=== PATIENT | female | born 1960 | race African-American/Black ===

== ENCOUNTER 2020-04-08 11:38 | Emergency (ER) | payer OTHER ==
[~2020-04-08] VITALS: Ht 162.6 cm; Wt 114.0 kg
[2020-04-08] MEDS ORDERED: ONDANSETRON HCL 4MG/2ML INJ IV STA (12:16)
[2020-04-08] MEDS ORDERED: KETOROLAC 30MG/ML VIAL IV ONE (12:30)
[2020-04-08] MEDS ORDERED: SODIUM CHLORIDE 0.9% 1,000 ML IV ONE (12:30)
[2020-04-08] MEDS ORDERED: FENTANYL CITRATE/PF 50MCG/ML 2ML VIAL IV ONE ×2 (14:15→18:45)
[2020-04-08] MEDS ORDERED: ETOMIDATE 2MG/ML 10ML VIAL IV ONE (14:15)
[2020-04-08 15:45] LABS: BASOPHILS % 0.8 % (0.0-2.0); EOSINOPHILS % 0.7 % (0.0-5.0); HEMATOCRIT. 33.4 % (36.0-48.0); HEMOGLOBIN. 10.4 g/dL (12.0-16.0); LYMPHOCYTES % 20.5 % (20.0-50.0); MEAN CORPUSCULAR HEMOGLOBIN 26.3 pg (28.0-32.0); MEAN CORPUSCULAR VOLUME 84.3 fL (81.0-99.0); MEAN PLATELET VOLUME 10.1 fl (7.4-10.4); PLATELET 96 x1000/uL (130-400); RED BLOOD CELL COUNT 3.96 mill/uL (4.2-5.4)
[2020-04-08 15:54] LABS: CHLORIDE 109 mEq/L (98-107)
[2020-04-08 15:57] LABS: PARTIAL THROMBOPLASTIN TIME 25.2 sec (23.4-31.0); PROTHROMBIN TIME 10.6 sec (9.6-11.0)
[2020-04-08] MEDS ORDERED: DEXTROSE 50% WATER 50ML SYRINGE IV ONE (17:00)
[2020-04-08 20:00] VITALS: BP 137/80
== END 2020-04-08 21:45 | disposition short-term general hospital (02) ==
LOC: ER 11:47
DX: T84.021A Dislocation of internal left hip prosthesis, initial encounter (principal); M06.9 Rheumatoid arthritis, unspecified; E11.9 Type 2 diabetes mellitus without complications; I10 Essential (primary) hypertension; Z98.890 Other specified postprocedural states; Z88.1 Allergy status to other antibiotic agents; Z88.6 Allergy status to analgesic agent; M25.452 Effusion, left hip; W18.39XA Other fall on same level, initial encounter; Y93.89 Activity, other specified; Y92.89 Other specified places as the place of occurrence of the external cause; Y99.8 Other external cause status
CPT/HCPCS: 27265; 36415; 71045; 72170; 73502; 73552; 80053; 82962; 85025; 85610; 85730; 86850; 86900; 86901; 93005; 96361; 96374; 96375; 99152; 99285; J1885; J2405; J3010; J3490; J7030

== ENCOUNTER 2023-03-25 11:42 | Emergency (ER) | payer OTHER ==
[~2023-03-25] VITALS: Ht 167.6 cm; Wt 101.0 kg
[2023-03-25 11:52] VITALS: TEMP 98.1; O2SAT 97
[2023-03-25] MEDS ORDERED: MORPHINE SULFATE 10 MG/ML CPJ IM ONE (13:00)
[2023-03-25 14:00] VITALS: BP 148/83; PULSE 95; RESP 18
[2023-03-25] MEDS ORDERED: KETOROLAC 30MG/ML VIAL IM ONE (14:00)
[2023-03-25] MEDS ORDERED: METHYLPREDNISOLONE SOD SUCC 40MG VIAL IV ONE (14:15)
[2023-03-25] MEDS ORDERED: DIPHENHYDRAMINE 50MG/ML VIAL IV ONE (14:15)
[2023-03-25] MEDS ORDERED: HYDR-4350 MT (16:02)
== END 2023-03-25 16:34 | disposition home or self-care (01) ==
LOC: ER 11:42
DX: M25.551 Pain in right hip (principal); I10 Essential (primary) hypertension; E11.9 Type 2 diabetes mellitus without complications; Z88.0 Allergy status to penicillin; Z88.5 Allergy status to narcotic agent; Z98.890 Other specified postprocedural states; Z86.59 Personal history of other mental and behavioral disorders
CPT/HCPCS: 73502; 73700; 96372; 96374; 96375; 99285; J1200; J1885; J2920; Z7610; C1893

== ENCOUNTER 2024-01-27 00:13 | Inpatient (IN) | payer MEDICARE, MEDICAID ==
[~2024-01-27] VITALS: Ht 162.6 cm; Wt 104.3 kg
[~2024-01-27 00:13] MED LIST: APIX5TAB MT; DULO30CA52 MT; FERR325T6 MT; GABA-532 MT; HYDR-4350 MT; IMIP10TA MT; LEVO-65 MT; METO-385 PO; MONT5TAB25 PO; PRED5TAB48 PO; TOPI100T37 PO
[2024-01-27 00:19] VITALS: O2SAT 98
[2024-01-27 01:08] LABS: BG CARBOXYHEMOGLOBIN 0.1 % (0.5-1.5); BG DEOXYHEMOGLOBIN 6.3 % (0.0-5.0); BG FRACTION INSPIRED OXYGEN 21; BG HCO3 ACT 23.1 mmol/L (21.0-28.0); BG METHEMOGLOBIN 0.1 % (0.5-1.5); BG OXYGEN SATURATION 93.7 % (94.0-98.0); BG OXYHEMOGLOBIN 93.5 % (94.0-98.0); BG PCO2 40.6 mmHg (32.0-45.0); BG PH 7.373 (7.350-7.450); BG PO2 79.6 mmHg (83.0-108.0); BG SAMPLE SITE RIGHT RADIAL; BG TOTAL HEMOGLOBIN 11.3 g/dL (12.0-16.0); BG VENT MODE ROOM AIR
[2024-01-27 01:42] LABS: BASOPHILS % 1.3 % (0.0-2.0); EOSINOPHILS % 1.4 % (0.0-5.0); HEMATOCRIT. 33.2 % (36.0-48.0); HEMOGLOBIN. 10.4 g/dL (12.0-16.0); LYMPHOCYTES % 27.3 % (20.0-50.0); MEAN CORPUSCULAR HEMOGLOBIN 26.7 pg (28.0-32.0); MEAN CORPUSCULAR HGB CONC 31.4 g/dL (31.0-37.0); MEAN PLATELET VOLUME 9.8 fl (7.4-10.4); MONOCYTES % 11.7 % (2.0-8.0); NEUTROPHILS % 58.3 % (40.0-76.0); PLATELET 106 x1000/uL (130-400); RED CELL DISTRIBUTION WIDTH 16.2 % (11.6-14.6); WHITE BLOOD COUNT 7.6 x1000/uL (4.5-11.0)
[2024-01-27 01:47] LABS: CHLORIDE 108 mEq/L (98-107); POTASSIUM 3.5 mEq/L (3.5-5.1); SODIUM 143 mEq/L (136-145)
[2024-01-27 01:48] LABS: CALCIUM 9.2 mg/dL (8.7-10.4); CARBON DIOXIDE 27 mEq/L (21-32)
[2024-01-27 01:51] LABS: PROTHROMBIN TIME 11.5 sec (9.6-11.0)
[2024-01-27 01:53] LABS: GLUCOSE 104 mg/dL (70-105)
[2024-01-27 01:54] LABS: TROPONIN I HIGH SENSITIVITY 7 ng/L (3.0-34); UREA NITROGEN BLOOD 26 mg/dL (9-23)
[2024-01-27 01:55] LABS: ALANINE AMINOTRANSFERASE 24 IU/L (10-49); ALBUMIN 3.9 g/dL (3.2-4.8); ASPARTATE AMINOTRANSFERASE 42 IU/L (<34); BILIRUBIN DIRECT 0.2 mg/dL (<=3.0); CREATINE KINASE 284 IU/L (34-145)
[2024-01-27 01:56] LABS: BILIRUBIN TOTAL 0.6 mg/dL (0.1-1.0); PROTEIN TOTAL 6.4 g/dL (6.0-8.3)
[2024-01-27 02:05] LABS: CREATININE 2.1 mg/dL (0.6-1.0); ETHANOL BLOOD < 10 mg/dL (<10)
[2024-01-27] MEDS: CEFTRIAXONE 1GM/50ML 50 ML IV ONE (02:37)
[2024-01-27 04:28] LABS: TROPONIN I HIGH SENSITIVITY 7 ng/L (3.0-34)
[2024-01-27 06:21] LABS: CLARITY URINE CLOUDY (CLEAR); COLOR URINE DARK YELLOW (YELLOW); GLUCOSE URINE NEGATIVE (NEGATIVE); KETONES URINE TRACE (NEGATIVE); LEUKOCYTE ESTERASE URINE 1+ (NEGATIVE); NITRITE URINE NEGATIVE (NEGATIVE); OCCULT BLOOD URINE NEGATIVE (NEGATIVE); PH URINE 5.5 (4.5-8.0); PROTEIN URINE 1+ (NEGATIVE); SPECIFIC GRAVITY URINE 1.024 (1.005-1.030)
[2024-01-27 06:32] LABS: *AMPHETAMINES SCREEN URINE NEGATIVE (NEGATIVE); *BARBITURATES SCREEN URINE NEGATIVE (NEGATIVE); *BENZODIAZEPINES SCREEN URINE NEGATIVE (NEGATIVE); *COCAINE SCREEN URINE NEGATIVE (NEGATIVE)
[2024-01-27 06:33] LABS: CANNABINOID URINE SCREEN NEGATIVE (NEGATIVE); ECSTASY MDMA SCREEN URINE NEGATIVE (NEGATIVE); METHADONE URINE SCREEN NEGATIVE (NEGATIVE); OPIATES URINE SCREEN PRESUMPTIVE POSITIVE (NEGATIVE); PHENCYCLIDINE URINE SCREEN NEGATIVE (NEGATIVE)
[2024-01-27 07:17] LABS: SQUAMOUS EPITHELIAL CELL URINE FEW /lpf (RARE/1+)
[2024-01-27 07:18] LABS: BACTERIA URINE NONE SEEN
[2024-01-27] MEDS: SODIUM CHLORIDE 0.9% 1,000 ML IV ONE (07:39)
[2024-01-27] MEDS ORDERED: MAGNESIUM/ALUMINUM HYDROXIDE/SIMETHICONE 30ML UDC PO PRN (09:30)
[2024-01-27] MEDS ORDERED: IPRATROPIUM/ALBUTEROL 0.5-3(2.5)MG/3ML NEB NEB PRN (09:30)
[2024-01-27] MEDS ORDERED: ACETAMINOPHEN 325MG TABLET PO PRN (09:30)
[2024-01-27] MEDS ORDERED: NITROGLYCERIN 0.4MG TABLET SL SL PRN (09:30)
[2024-01-27] MEDS ORDERED: DEXTROSE 50% WATER 50ML SYRINGE IV PRN (09:30)
[2024-01-27] MEDS ORDERED: DOCUSATE SODIUM 100MG CAPSULE PO PRN (09:30)
[2024-01-27] MEDS: AMLODIPINE 10MG TABLET PO SCH (09:30)
[2024-01-27] MEDS ORDERED: GUAIFENESIN 200MG/10ML SUGAR FREE UDC PO PRN (09:30)
[2024-01-27] MEDS: LACTATED RINGERS 1,000 ML IV SCH (11:00)
[2024-01-27 12:00] VITALS: BP 106/60; PULSE 67; RESP 19; TEMP 36.50292; O2SAT 100
[2024-01-27 12:21] VITALS: BP 106/60; PULSE 67; RESP 18; TEMP 36.696
[2024-01-27] MEDS: BLOOD SUGAR DIAGNOSTIC STRIP TEST SCH (12:32)
[2024-01-27] MEDS: INSULIN LISPRO 100 UNITS/ML SUBCUT SCH (12:50)
[2024-01-27 16:00] VITALS: BP 116/66; PULSE 75; RESP 18; TEMP 37.05852; O2SAT 97
[2024-01-27] MEDS: APIXABAN 2.5 MG TABLET PO SCH (18:31)
[2024-01-27 20:00] VITALS: BP 132/76; PULSE 90; RESP 18; TEMP 37.11408; O2SAT 98
[2024-01-27] MEDS: FAMOTIDINE 20MG TABLET PO SCH (21:00)
[2024-01-27] MEDS: ASCORBIC ACID 500 MG TABLET PO SCH (21:00)
[2024-01-27 22:50] LABS: IRON 75 ug/dL (50-170)
[2024-01-27 22:51] LABS: CREATINE KINASE MB FRACTION 11.5 ng/mL (0.5-3.6); LDL CHOLESTEROL 65 mg/dL (5-100); TRIGLYCERIDE 133 mg/dL (0-150)
[2024-01-27 22:52] LABS: CHOLESTEROL 126 mg/dL (<200); CORTISOL 2.6 ucg/dL; HDL CHOLESTEROL 34 mg/dL (>65)
[2024-01-27 22:53] LABS: THYROID STIMULATING HORMONE 0.46 uIU/mL (0.55-4.78); TOTAL IRON BINDING CAPACITY 93 ug/dl (250-425)
[2024-01-27 22:55] LABS: T4 FREE 0.99 ng/dL (0.89-1.76)
[2024-01-27 22:58] LABS: FOLIC ACID (FOLATE) SERUM 15.94 ng/mL (>5.38)
[2024-01-27 23:04] LABS: VITAMIN B12 SERUM > 2000 pg/mL (211-911)
[2024-01-28] VITALS: BP 113/63; PULSE 93; RESP 18; TEMP 36.72516; O2SAT 99
[2024-01-28 02:09] LABS: CREATINE KINASE MB FRACTION 11.8 ng/mL (0.5-3.6)
[2024-01-28 08:00] VITALS: BP 121/64; PULSE 99; RESP 18; TEMP 36.3918; O2SAT 96
[2024-01-28 08:33] LABS: BASOPHILS % 0.3 % (0.0-2.0); EOSINOPHILS % 2.3 % (0.0-5.0); HEMATOCRIT. 32.8 % (36.0-48.0); LYMPHOCYTES % 33.4 % (20.0-50.0); MEAN CORPUSCULAR HEMOGLOBIN 26.2 pg (28.0-32.0); MEAN CORPUSCULAR HGB CONC 30.6 g/dL (31.0-37.0); MEAN CORPUSCULAR VOLUME 85.8 fL (81.0-99.0); MEAN PLATELET VOLUME 11.2 fl (7.4-10.4); MONOCYTES % 12.8 % (2.0-8.0); NEUTROPHILS % 51.2 % (40.0-76.0); PLATELET 104 x1000/uL (130-400); RED BLOOD CELL COUNT 3.82 mill/uL (4.2-5.4); RED CELL DISTRIBUTION WIDTH 16.2 % (11.6-14.6); WHITE BLOOD COUNT 6.1 x1000/uL (4.5-11.0)
[2024-01-28 08:43] LABS: CARBON DIOXIDE 27 mEq/L (21-32); CHLORIDE 108 mEq/L (98-107); POTASSIUM 4.1 mEq/L (3.5-5.1); SODIUM 144 mEq/L (136-145)
[2024-01-28 08:44] LABS: CALCIUM 8.7 mg/dL (8.7-10.4)
[2024-01-28 08:48] LABS: CREATININE 1.1 mg/dL (0.6-1.0)
[2024-01-28 08:49] LABS: GLUCOSE 103 mg/dL (70-105); UREA NITROGEN BLOOD 17 mg/dL (9-23)
[2024-01-28 08:50] LABS: ALBUMIN 3.4 g/dL (3.2-4.8)
[2024-01-28 08:51] LABS: ALANINE AMINOTRANSFERASE 21 IU/L (10-49); ASPARTATE AMINOTRANSFERASE 32 IU/L (<34); BILIRUBIN TOTAL 0.5 mg/dL (0.1-1.0); PHOSPHORUS 3.7 mg/dL (2.5-4.9); PROTEIN TOTAL 5.7 g/dL (6.0-8.3)
[2024-01-28] MEDS: ASPIRIN 81MG EC TABLET PO SCH (09:26)
[2024-01-28] MEDS: ZINC SULFATE 220 MG ( 50 ) CAPSULE PO SCH (09:26)
[2024-01-28] MEDS: PREDNISONE 5MG TABLET PO SCH (09:26)
[2024-01-28 10:11] LABS: ERYTHROCYTE SEDIMENTATION RATE 18 mm/hr (0-30)
[2024-01-28] MEDS ORDERED: NALOXONE HCL 0.4MG/ML VIAL IV PRN (10:45)
[2024-01-28] MEDS: HYDROCODONE/ACETAMINOPHEN 5/325MG TABLET PO PRN (13:28)
[2024-01-28 20:00] VITALS: BP 144/77; PULSE 101; RESP 19; TEMP 37.503; O2SAT 90
[2024-01-28] MEDS: MEROPENEM 1G/100ML 100 ML IV SCH (22:00)
[2024-01-29] VITALS: BP 128/54; PULSE 109; RESP 19; TEMP 37.16964; O2SAT 98
[2024-01-29 04:00] VITALS: BP 138/62; PULSE 98; RESP 19; TEMP 37.11408; O2SAT 96
[2024-01-29 08:00] VITALS: BP 154/83; PULSE 112; RESP 20; TEMP 36.50292; O2SAT 100
[2024-01-29 12:00] VITALS: BP 137/73; PULSE 105; RESP 19; TEMP 36.3918; O2SAT 100
[2024-01-29 16:00] VITALS: BP 142/77; PULSE 114; RESP 18; TEMP 36.61404; O2SAT 100
[2024-01-29 20:00] VITALS: BP 97/55; PULSE 116; RESP 18; TEMP 37.11408; O2SAT 100
[2024-01-30] VITALS: BP 131/76; PULSE 121; RESP 18; TEMP 36.61404; O2SAT 100
[2024-01-30] MEDS: DICLOFENAC SODIUM 75MG DR TABLET PO SCH (00:19)
[2024-01-30] MEDS: HYDROXYCHLOROQUINE SULFATE 200MG TABLET PO SCH (00:19)
[2024-01-30] MEDS ORDERED: METHYLPREDNISOLONE SOD SUCC 40MG/ML (ACT-O-VIAL) IV SCH (06:00)
[2024-01-30] MEDS: METHYLPREDNISOLONE SOD SUCC 40MG/ML (ACT-O-VIAL) IV SCH (06:00)
[2024-01-30 08:00] VITALS: BP 154/87; PULSE 118; RESP 19; TEMP 36.61404; O2SAT 100
[2024-01-30 08:53] LABS: CHLORIDE 104 mEq/L (98-107); SODIUM 138 mEq/L (136-145)
[2024-01-30 08:54] LABS: CALCIUM 9.1 mg/dL (8.7-10.4); CARBON DIOXIDE 27 mEq/L (21-32)
[2024-01-30 08:56] LABS: PROTHROMBIN TIME 10.7 sec (9.6-11.0)
[2024-01-30 08:59] LABS: CREATININE 0.8 mg/dL (0.6-1.0); GLUCOSE 106 mg/dL (70-105); UREA NITROGEN BLOOD 9 mg/dL (9-23)
[2024-01-30 09:01] LABS: CREATINE KINASE 118 IU/L (34-145)
[2024-01-30 09:02] LABS: PHOSPHORUS 5.5 mg/dL (2.5-4.9)
[2024-01-30 09:05] LABS: T4 FREE 1.24 ng/dL (0.89-1.76)
[2024-01-30 12:00] VITALS: BP 138/75; PULSE 119; RESP 18; TEMP 36.72516; O2SAT 99
[2024-01-30] MEDS: ONDANSETRON HCL 4MG/2ML INJ IV PRN (13:07)
[2024-01-30 16:00] VITALS: BP 150/75; PULSE 121; RESP 19; TEMP 37.00296; O2SAT 98
[2024-01-30] MEDS ORDERED: WARFARIN SODIUM 4MG TABLET PO SCH (18:00)
[2024-01-30] MEDS: WARFARIN SODIUM 5MG TABLET PO NR (18:33)
[2024-01-30 20:00] VITALS: BP 157/88; PULSE 119; RESP 19; TEMP 37.89192; O2SAT 97
[2024-01-30] MEDS: ACETAMINOPHEN 325MG TABLET PO PRN (21:50)
[2024-01-31] VITALS: BP 168/97; PULSE 117; RESP 19; TEMP 36.72516; O2SAT 98
[2024-01-31] MEDS: CLONIDINE 0.1MG TABLET PO PRN (01:11)
[2024-01-31] MEDS: ZOLPIDEM TARTRATE 5MG TABLET PO PRN (01:14)
[2024-01-31 04:00] VITALS: BP 166/96; PULSE 116; RESP 19; TEMP 37.16964; O2SAT 99
[2024-01-31 08:00] VITALS: BP 134/80; PULSE 113; RESP 19; TEMP 36.50292; O2SAT 97
[2024-01-31 09:06] LABS: COMPLEMENT C3 138 mg/dL (82-167); COMPLEMENT C4 13 mg/dL (12-38)
[2024-01-31] MEDS ORDERED: HYDROCODONE/ACETAMINOPHEN 5/325MG TABLET PO PRN (09:45)
[2024-01-31 10:41] LABS: INR 0.9; PROTHROMBIN TIME 10.6 sec (9.6-11.0)
[2024-01-31] MEDS ORDERED: APIXABAN 5 MG TABLET PO SCH (10:45)
[2024-01-31 12:00] VITALS: BP 153/53; PULSE 125; RESP 19; TEMP 36.61404; O2SAT 99
[2024-01-31 16:00] VITALS: BP 142/80; PULSE 129; RESP 19; TEMP 36.55848; O2SAT 98
[2024-01-31] MEDS: HYDROCODONE/ACETAMINOPHEN 10/325MG TABLET PO PRN (17:43)
[2024-01-31] MEDS: ENOXAPARIN 100MG/ML SYR SUBCUT SCH (18:08)
[2024-01-31 20:00] VITALS: BP 151/78; PULSE 118; RESP 18; TEMP 36.55848; O2SAT 7
[2024-01-31] MEDS: WARFARIN SODIUM 7.5MG TABLET PO NR (22:16)
[2024-02-01] VITALS: BP 153/96; PULSE 111; RESP 18; TEMP 36.89184; O2SAT 97
[2024-02-01 04:00] VITALS: BP 142/83; PULSE 119; RESP 18; TEMP 36.9474; O2SAT 98
[2024-02-01 07:19] LABS: CARBON DIOXIDE 24 mEq/L (21-32); CHLORIDE 105 mEq/L (98-107); POTASSIUM 4.3 mEq/L (3.5-5.1); SODIUM 138 mEq/L (136-145)
[2024-02-01 07:20] LABS: CALCIUM 8.6 mg/dL (8.7-10.4)
[2024-02-01 07:25] LABS: CREATININE 0.8 mg/dL (0.6-1.0); GLUCOSE 129 mg/dL (70-105); UREA NITROGEN BLOOD 14 mg/dL (9-23)
[2024-02-01 07:26] LABS: PROTHROMBIN TIME 11.1 sec (9.6-11.0)
[2024-02-01 07:49] LABS: HEMATOCRIT 33.1 % (36.0-48.0); HEMOGLOBIN 10.2 g/dL (12.0-16.0); MEAN CORPUSCULAR HEMOGLOBIN 26.1 pg (28.0-32.0); MEAN CORPUSCULAR HGB CONC 30.9 g/dL (31.0-37.0); MEAN CORPUSCULAR VOLUME 84.5 fL (81.0-99.0); PLATELET 116 x1000/uL (130-400); RED BLOOD CELL COUNT 3.91 mill/uL (4.2-5.4); RED CELL DISTRIBUTION WIDTH 16.2 % (11.6-14.6)
[2024-02-01 08:00] VITALS: BP 149/76; PULSE 113; RESP 19; TEMP 36.55848; O2SAT 96
[2024-02-01 09:07] LABS: ANGIOTENSION CONVERTING ENZYME 56 U/L (14-82)
[2024-02-01 12:00] VITALS: BP 149/81; PULSE 119; RESP 19; TEMP 36.44736; O2SAT 97
[2024-02-01 16:00] VITALS: BP 153/78; PULSE 115; RESP 19; TEMP 36.6696; TEMP 36.66960; O2SAT 99
[2024-02-01 17:10] LABS: ANTI-MYELOPEROXIDASE AB < 0.2 units (0.0-0.9); ANTI-PROTEINASE 3 ABS < 0.2 units (0.0-0.9)
[2024-02-01] MEDS ORDERED: WARFARIN SODIUM 7.5MG TABLET PO NR (18:00)
[2024-02-01] MEDS ORDERED: BUME1TAB33 PO (19:46)
[2024-02-01] MEDS ORDERED: POTA-189 PO (19:46)
[2024-02-01] MEDS ORDERED: SUMA100T16 PO (19:52)
[2024-02-01] MEDS ORDERED: ERGO1250 PO (19:52)
[2024-02-01] MEDS ORDERED: DULO20CA18 PO (19:52)
[2024-02-01] MEDS ORDERED: METF-414 PO (19:52)
[2024-02-01] MEDS ORDERED: HYDR-4009 PO (19:52)
[2024-02-01] MEDS ORDERED: METO-539 PO (19:52)
[2024-02-01] MEDS ORDERED: MIRT7.5T11 PO (19:52)
[2024-02-01] MEDS ORDERED: DOCU-150 PO (19:52)
[2024-02-01] MEDS ORDERED: BACL-141 PO (19:52)
[2024-02-01] MEDS ORDERED: ATOR40TA70 PO (19:52)
[2024-02-01] MEDS ORDERED: TOLT4CAP27 PO (19:52)
[2024-02-01] MEDS ORDERED: FAMO20TA8 PO (19:52)
[2024-02-01] MEDS ORDERED: ESCI5TAB16 PO (19:52)
[2024-02-01] MEDS ORDERED: RIBO100T9 PO (19:52)
[2024-02-01] MEDS ORDERED: METOPROLOL TARTRATE 50MG TABLET PO SCH (21:00)
[2024-02-02] MEDS ORDERED: AMLODIPINE 2.5MG TABLET PO SCH (09:00)
[2024-02-02 09:07] LABS: ALDOLASE 8.4 U/L (3.3-10.3)
[2024-02-02 13:10] LABS: ATYPICAL P-ANCA <1:20 titer (Neg:<1:20); CYTOPLASMIC C-ANCA <1:20 titer (Neg:<1:20); PERINUCLEAR P-ANCA <1:20 titer (Neg:<1:20)
[2024-02-02 17:07] LABS: ANA IFA Negative (.)
[2024-02-03 04:08] LABS: ANTI-CARDIOLIPIN AB IGG < 9 GPL U/mL (0-14); ANTI-CARDIOLIPIN AB IGM 10 MPL U/mL (0-12)
== END 2024-02-01 18:15 | DRG 545 ==
LOC: ER 00:13 → EDBEDREQSVC 07:03 → EDBEDREQ 07:03 → EDBEDREQTM 07:03 → 6EST 08:56
PROVIDERS: ADMIT Internal Medicine; ATTEND Internal Medicine
DX: M33.20 Polymyositis, organ involvement unspecified (principal); N17.0 Acute kidney failure with tubular necrosis; D68.61 Antiphospholipid syndrome; N39.0 Urinary tract infection, site not specified; E11.40 Type 2 diabetes mellitus with diabetic neuropathy, unspecified; M05.10 Rheumatoid lung disease with rheumatoid arthritis of unspecified site; D63.8 Anemia in other chronic diseases classified elsewhere; K21.9 Gastro-esophageal reflux disease without esophagitis; G89.4 Chronic pain syndrome; F31.9 Bipolar disorder, unspecified; I10 Essential (primary) hypertension; Z68.39 Body mass index [BMI] 39.0-39.9, adult; F20.9 Schizophrenia, unspecified; E66.01 Morbid (severe) obesity due to excess calories; M79.7 Fibromyalgia; G47.30 Sleep apnea, unspecified; K58.0 Irritable bowel syndrome with diarrhea; M81.0 Age-related osteoporosis without current pathological fracture; Z20.822 Contact with and (suspected) exposure to COVID-19; G43.909 Migraine, unspecified, not intractable, without status migrainosus; F41.9 Anxiety disorder, unspecified; R00.0 Tachycardia, unspecified; Z91.81 History of falling; Z96.653 Presence of artificial knee joint, bilateral; Z86.718 Personal history of other venous thrombosis and embolism; Z96.643 Presence of artificial hip joint, bilateral; Z79.01 Long term (current) use of anticoagulants; Z82.61 Family history of arthritis; Z86.711 Personal history of pulmonary embolism; Z90.710 Acquired absence of both cervix and uterus; Z79.4 Long term (current) use of insulin; Z88.0 Allergy status to penicillin; Z88.5 Allergy status to narcotic agent; R26.2 Difficulty in walking, not elsewhere classified
CPT/HCPCS: 36415; 36600; 71045; 76770; 80048; 80053; 80061; 80076; 80305; 80320; 81003; 82085; 82164; 82375; 82533; 82550; 82553; 82607; 82746; 82805; 82962; 83036; 83520; 83540; 83550; 83605; 83735; 83880; 84100; 84145; 84439; 84443; 84484; 85025; 85027; 85379; 85651; 86147; 86160; 86235; 86256; 86431; 87426; 92523; 93005; 93306; 93970; 97162; 97167; 97530; 97535; 99285; C1893; J0696; J1650; J1815; J2185; J2405; J2920; J7030; J7120; J7512; G0480

== ENCOUNTER 2024-02-01 18:26 | Inpatient (IN) | payer MEDICARE, MEDICAID ==
[~2024-02-01] VITALS: Ht 162.6 cm; Wt 103.4 kg
[2024-02-01] MEDS ORDERED: NITROGLYCERIN 0.4MG TABLET SL SL PRN (18:45)
[2024-02-01] MEDS ORDERED: ONDANSETRON HCL 4MG/2ML INJ IV PRN (18:45)
[2024-02-01] MEDS ORDERED: DOCUSATE SODIUM 100MG CAPSULE PO PRN (18:45)
[2024-02-01] MEDS ORDERED: GUAIFENESIN 200MG/10ML SUGAR FREE UDC PO PRN (18:45)
[2024-02-01] MEDS ORDERED: DEXTROSE 50% WATER 50ML SYRINGE IV PRN (18:45)
[2024-02-01] MEDS ORDERED: POTA-189 PO (19:46)
[2024-02-01] MEDS ORDERED: BUME1TAB33 PO (19:46)
[2024-02-01] MEDS: HYDROCODONE/ACETAMINOPHEN 5/325MG TABLET PO PRN (19:51)
[2024-02-01] MEDS ORDERED: METO-539 PO (19:52)
[2024-02-01] MEDS ORDERED: DULO20CA18 PO (19:52)
[2024-02-01] MEDS ORDERED: RIBO100T9 PO (19:52)
[2024-02-01] MEDS ORDERED: ESCI5TAB16 PO (19:52)
[2024-02-01] MEDS ORDERED: TOLT4CAP27 PO (19:52)
[2024-02-01] MEDS ORDERED: MIRT7.5T11 PO (19:52)
[2024-02-01] MEDS ORDERED: ATOR40TA70 PO (19:52)
[2024-02-01] MEDS ORDERED: FAMO20TA8 PO (19:52)
[2024-02-01] MEDS ORDERED: METF-414 PO (19:52)
[2024-02-01] MEDS ORDERED: SUMA100T16 PO (19:52)
[2024-02-01] MEDS ORDERED: DOCU-150 PO (19:52)
[2024-02-01] MEDS ORDERED: BACL-141 PO (19:52)
[2024-02-01] MEDS ORDERED: HYDR-4009 PO (19:52)
[2024-02-01] MEDS ORDERED: ERGO1250 PO (19:52)
[2024-02-01 20:00] VITALS: BP 111/62; PULSE 86; RESP 18; TEMP 36.8072
[2024-02-01] MEDS: BLOOD SUGAR DIAGNOSTIC STRIP TEST SCH (21:00)
[2024-02-01] MEDS: INSULIN LISPRO 100 UNITS/ML SUBCUT SCH (21:00)
[2024-02-01] MEDS: METHYLPREDNISOLONE SOD SUCC 40MG/ML (ACT-O-VIAL) IV SCH (21:30)
[2024-02-01] MEDS: LACTATED RINGERS 1,000 ML IV SCH (21:30)
[2024-02-01] MEDS: DICLOFENAC SODIUM 75MG DR TABLET PO SCH (21:47)
[2024-02-01] MEDS: HYDROXYCHLOROQUINE SULFATE 200MG TABLET PO SCH (21:47)
[2024-02-01] MEDS: ASCORBIC ACID 500 MG TABLET PO SCH (21:48)
[2024-02-01] MEDS: METOPROLOL TARTRATE 50MG TABLET PO SCH (21:48)
[2024-02-01] MEDS: FAMOTIDINE 20MG TABLET PO SCH (21:48)
[2024-02-01] MEDS: MEROPENEM 1G/100ML 100 ML IV SCH (22:00)
[2024-02-01] MEDS: ENOXAPARIN 100MG/ML SYR SUBCUT SCH (22:04)
[2024-02-01] MEDS: WARFARIN SODIUM 7.5MG TABLET PO SCH (22:04)
[2024-02-02] MEDS: HYDROCODONE/ACETAMINOPHEN 10/325MG TABLET PO PRN (03:30)
[2024-02-02 07:27] LABS: INR 1.1; PROTHROMBIN TIME 12.4 sec (9.6-11.0)
[2024-02-02 07:28] LABS: CHLORIDE 106 mEq/L (98-107); POTASSIUM 4.6 mEq/L (3.5-5.1); SODIUM 139 mEq/L (136-145)
[2024-02-02 07:31] LABS: CARBON DIOXIDE 26 mEq/L (21-32)
[2024-02-02 07:32] LABS: CALCIUM 8.9 mg/dL (8.7-10.4)
[2024-02-02 07:36] LABS: ALANINE AMINOTRANSFERASE 28 IU/L (10-49); CREATININE 0.9 mg/dL (0.6-1.0); GLUCOSE 116 mg/dL (70-105)
[2024-02-02 07:37] LABS: ASPARTATE AMINOTRANSFERASE 33 IU/L (<34); UREA NITROGEN BLOOD 19 mg/dL (9-23)
[2024-02-02 07:38] LABS: ALBUMIN 4.1 g/dL (3.2-4.8)
[2024-02-02 07:39] LABS: BILIRUBIN TOTAL 0.7 mg/dL (0.1-1.0); PREALBUMIN 21.1 mg/dl (10.0-40.0); PROTEIN TOTAL 6.8 g/dL (6.0-8.3)
[2024-02-02 07:42] LABS: BASOPHILS % 0.3 % (0.0-2.0); DIFFERENTIAL COMMENT 0; HEMATOCRIT. 37.1 % (36.0-48.0); HEMOGLOBIN. 11.3 g/dL (12.0-16.0); LYMPHOCYTES % 11.2 % (20.0-50.0); MEAN CORPUSCULAR HGB CONC 30.5 g/dL (31.0-37.0); MEAN CORPUSCULAR VOLUME 85.1 fL (81.0-99.0); MEAN PLATELET VOLUME 9.7 fl (7.4-10.4); NEUTROPHILS % 84.5 % (40.0-76.0); PLATELET 121 x1000/uL (130-400); RED BLOOD CELL COUNT 4.35 mill/uL (4.2-5.4); RED CELL DISTRIBUTION WIDTH 16.3 % (11.6-14.6); WHITE BLOOD COUNT 11.4 x1000/uL (4.5-11.0)
[2024-02-02 08:00] VITALS: BP 173/94; PULSE 63; RESP 18; TEMP 36.16956; O2SAT 95
[2024-02-02] MEDS: AMLODIPINE 2.5MG TABLET PO SCH ×2 (09:25→20:35)
[2024-02-02] MEDS: ASPIRIN 81MG EC TABLET PO SCH (09:25)
[2024-02-02] MEDS: ZINC SULFATE 220 MG ( 50 ) CAPSULE PO SCH (09:25)
[2024-02-02] MEDS: CLONIDINE 0.1MG TABLET PO PRN (10:07)
[2024-02-02] MEDS: OXYBUTYNIN CHLORIDE 5MG TABLET PO SCH (12:30)
[2024-02-02] MEDS: WARFARIN SODIUM 10MG TABLET PO NR (18:58)
[2024-02-02 20:00] VITALS: BP 125/54; PULSE 92; RESP 20; TEMP 36.72516; O2SAT 92
[2024-02-03 06:57] LABS: CLARITY URINE CLEAR (CLEAR); COLOR URINE YELLOW (YELLOW); GLUCOSE URINE NEGATIVE (NEGATIVE); KETONES URINE NEGATIVE (NEGATIVE); LEUKOCYTE ESTERASE URINE NEGATIVE (NEGATIVE); NITRITE URINE NEGATIVE (NEGATIVE); OCCULT BLOOD URINE NEGATIVE (NEGATIVE); PROTEIN URINE NEGATIVE (NEGATIVE); SPECIFIC GRAVITY URINE 1.015 (1.005-1.030)
[2024-02-03 08:00] VITALS: BP 143/76; PULSE 64; RESP 20; TEMP 36.3918; O2SAT 95
[2024-02-03 08:22] VITALS: BP 143/76; PULSE 64; RESP 64; TEMP 36.3918; O2SAT 95
[2024-02-03] MEDS ORDERED: NON FORMULARY MED PO SCH (09:00)
[2024-02-03] MEDS: WARFARIN SODIUM 5MG TABLET PO SCH (18:17)
[2024-02-03 20:00] VITALS: BP 141/69; PULSE 85; RESP 18; TEMP 36.89184; O2SAT 99
[2024-02-04 08:00] VITALS: BP 143/74; PULSE 66; RESP 18; TEMP 36.22512; O2SAT 98
[2024-02-04] MEDS: NALOXONE HCL 0.4MG/ML VIAL IV PRN (10:05)
[2024-02-04] MEDS: WARFARIN SODIUM 5MG TABLET PO SCH (17:52)
[2024-02-04 20:00] VITALS: BP 105/39; PULSE 92; RESP 20; TEMP 38.22528; O2SAT 99
[2024-02-04 20:57] LABS: PROTHROMBIN TIME 62.7 sec (9.6-11.0)
[2024-02-04 21:19] LABS: INR 6.4
[2024-02-05 06:57] VITALS: TEMP 36.3918
[2024-02-05 08:00] VITALS: BP 141/76; PULSE 74; RESP 18; TEMP 36.28068; O2SAT 100
[2024-02-05 09:25] VITALS: BP 145/75; PULSE 87
[2024-02-05 10:54] LABS: PROTHROMBIN TIME 49.4 sec (9.6-11.0)
[2024-02-05 20:00] VITALS: BP 140/76; PULSE 84; RESP 19; TEMP 37.11408; O2SAT 97
[2024-02-05 21:24] LABS: PROTHROMBIN TIME 43.2 sec (9.6-11.0)
[2024-02-05 21:34] LABS: INR 4.3
[2024-02-06 20:00] VITALS: BP 114/55; PULSE 84; RESP 18; TEMP 37.28076; O2SAT 97
[2024-02-06 20:58] LABS: HEMATOCRIT 32.1 % (36.0-48.0); HEMOGLOBIN 10.3 g/dL (12.0-16.0); MEAN CORPUSCULAR HEMOGLOBIN 26.9 pg (28.0-32.0); MEAN CORPUSCULAR HGB CONC 32.1 g/dL (31.0-37.0); MEAN CORPUSCULAR VOLUME 83.6 fL (81.0-99.0); PLATELET 153 x1000/uL (130-400); RED BLOOD CELL COUNT 3.84 mill/uL (4.2-5.4); RED CELL DISTRIBUTION WIDTH 15.9 % (11.6-14.6); WHITE BLOOD COUNT 9.3 x1000/uL (4.5-11.0)
[2024-02-06 21:08] LABS: CHLORIDE 106 mEq/L (98-107); POTASSIUM 4.2 mEq/L (3.5-5.1); SODIUM 138 mEq/L (136-145)
[2024-02-06 21:09] LABS: CARBON DIOXIDE 25 mEq/L (21-32)
[2024-02-06 21:10] LABS: CALCIUM 8.6 mg/dL (8.7-10.4)
[2024-02-06 21:14] LABS: CREATININE 0.9 mg/dL (0.6-1.0); GLUCOSE 110 mg/dL (70-105)
[2024-02-06 21:15] LABS: UREA NITROGEN BLOOD 18 mg/dL (9-23)
[2024-02-07 06:37] LABS: CARBON DIOXIDE 26 mEq/L (21-32); CHLORIDE 107 mEq/L (98-107); POTASSIUM 4.4 mEq/L (3.5-5.1); SODIUM 141 mEq/L (136-145)
[2024-02-07 06:39] LABS: CALCIUM 8.9 mg/dL (8.7-10.4)
[2024-02-07 06:43] LABS: CREATININE 0.8 mg/dL (0.6-1.0); GLUCOSE 86 mg/dL (70-105); UREA NITROGEN BLOOD 17 mg/dL (9-23)
[2024-02-07 07:19] LABS: PROTHROMBIN TIME 20.9 sec (9.6-11.0)
[2024-02-07 08:00] VITALS: PULSE 81; RESP 19; TEMP 36.55848; O2SAT 99
[2024-02-07 08:25] LABS: BASOPHILS % 0.4 % (0.0-2.0); EOSINOPHILS % 2.2 % (0.0-5.0); HEMATOCRIT. 34.5 % (36.0-48.0); HEMOGLOBIN. 10.9 g/dL (12.0-16.0); LYMPHOCYTES % 25.6 % (20.0-50.0); MEAN CORPUSCULAR HEMOGLOBIN 26.4 pg (28.0-32.0); MEAN CORPUSCULAR HGB CONC 31.5 g/dL (31.0-37.0); MEAN CORPUSCULAR VOLUME 83.6 fL (81.0-99.0); MEAN PLATELET VOLUME 11.3 fl (7.4-10.4); MONOCYTES % 10.3 % (2.0-8.0); NEUTROPHILS % 61.5 % (40.0-76.0); PLATELET 136 x1000/uL (130-400); RED BLOOD CELL COUNT 4.13 mill/uL (4.2-5.4); RED CELL DISTRIBUTION WIDTH 16.2 % (11.6-14.6)
[2024-02-07] MEDS ORDERED: HYDROCODONE/ACETAMINOPHEN 5/325MG TABLET PO PRN (10:15)
[2024-02-07] MEDS ORDERED: NALOXONE HCL 0.4MG/ML VIAL IV PRN (10:15)
[2024-02-07] MEDS ORDERED: HYDROCODONE/ACETAMINOPHEN 10/325MG TABLET PO PRN (10:15)
[2024-02-07] MEDS: METHOCARBAMOL 500MG TABLET PO PRN (16:32)
[2024-02-07] MEDS: WARFARIN SODIUM 2.5MG TABLET PO SCH (18:40)
[2024-02-07 20:00] VITALS: BP 134/69; PULSE 113; RESP 19; TEMP 36.61404; O2SAT 100
[2024-02-07] MEDS: METOPROLOL TARTRATE 25MG TABLET PO SCH (21:31)
[2024-02-08 06:24] LABS: INR 1.7; PROTHROMBIN TIME 18.2 sec (9.6-11.0)
[2024-02-08 08:00] VITALS: BP 129/67; PULSE 79; RESP 18; TEMP 36.55848; O2SAT 97
[2024-02-08] MEDS: AMLODIPINE 2.5MG TABLET PO SCH (09:02)
[2024-02-08 13:00] LABS: CHLORIDE 107 mEq/L (98-107); POTASSIUM 4.3 mEq/L (3.5-5.1); SODIUM 139 mEq/L (136-145)
[2024-02-08 13:01] LABS: CALCIUM 8.7 mg/dL (8.7-10.4); CARBON DIOXIDE 24 mEq/L (21-32)
[2024-02-08 13:06] LABS: CREATININE 0.7 mg/dL (0.6-1.0); GLUCOSE 87 mg/dL (70-105); UREA NITROGEN BLOOD 14 mg/dL (9-23)
[2024-02-08 13:08] LABS: ALANINE AMINOTRANSFERASE 50 IU/L (10-49); ALBUMIN 3.5 g/dL (3.2-4.8); ASPARTATE AMINOTRANSFERASE 27 IU/L (<34); BILIRUBIN TOTAL 0.8 mg/dL (0.1-1.0)
[2024-02-08 13:09] LABS: PROTEIN TOTAL 5.6 g/dL (6.0-8.3)
[2024-02-08] MEDS: WARFARIN SODIUM 4MG TABLET PO NR (19:51)
[2024-02-08 20:00] VITALS: BP 113/46; PULSE 89; RESP 18; TEMP 34.50276; O2SAT 99
[2024-02-08] MEDS: ACETAMINOPHEN 325MG TABLET PO PRN (21:25)
[2024-02-09 07:32] LABS: INR 1.6; PROTHROMBIN TIME 17.1 sec (9.6-11.0)
[2024-02-09 08:00] VITALS: BP 150/75; PULSE 91; RESP 19; TEMP 36.28068; O2SAT 100
[2024-02-09] MEDS ORDERED: GLUCAGON,HUMAN RECOMBINANT 1MG/VIAL IV PRN (13:45)
[2024-02-09] MEDS: WARFARIN SODIUM 4MG TABLET PO NR (18:02)
[2024-02-09] MEDS: MAGNESIUM/ALUMINUM HYDROXIDE/SIMETHICONE 30ML UDC PO PRN (19:54)
[2024-02-09 20:00] VITALS: BP 125/68; PULSE 88; RESP 18; TEMP 36.72516; O2SAT 95
[2024-02-10 07:21] LABS: CHLORIDE 108 mEq/L (98-107); SODIUM 139 mEq/L (136-145)
[2024-02-10 07:24] LABS: CALCIUM 9.4 mg/dL (8.7-10.4); CARBON DIOXIDE 23 mEq/L (21-32); INR 1.6; PROTHROMBIN TIME 17.2 sec (9.6-11.0)
[2024-02-10 07:29] LABS: ALANINE AMINOTRANSFERASE 77 IU/L (10-49); CREATININE 0.8 mg/dL (0.6-1.0); GLUCOSE 94 mg/dL (70-105); HEMATOCRIT. 32.9 % (36.0-48.0); HEMOGLOBIN. 10.1 g/dL (12.0-16.0); MEAN CORPUSCULAR HEMOGLOBIN 26.2 pg (28.0-32.0); MEAN CORPUSCULAR HGB CONC 30.7 g/dL (31.0-37.0); MEAN CORPUSCULAR VOLUME 85.3 fL (81.0-99.0); MEAN PLATELET VOLUME 10.3 fl (7.4-10.4); PLATELET 120 x1000/uL (130-400); RED BLOOD CELL COUNT 3.86 mill/uL (4.2-5.4); RED CELL DISTRIBUTION WIDTH 16.5 % (11.6-14.6); UREA NITROGEN BLOOD 11 mg/dL (9-23); WHITE BLOOD COUNT 7.8 x1000/uL (4.5-11.0)
[2024-02-10] MEDS ORDERED: GLUCAGON,HUMAN RECOMBINANT 1MG/VIAL IM PRN (07:30)
[2024-02-10 07:31] LABS: ALBUMIN 3.6 g/dL (3.2-4.8); ASPARTATE AMINOTRANSFERASE 34 IU/L (<34); BILIRUBIN TOTAL 0.8 mg/dL (0.1-1.0); PHOSPHORUS 4.8 mg/dL (2.5-4.9); PROTEIN TOTAL 5.7 g/dL (6.0-8.3)
[2024-02-10 08:00] VITALS: BP 145/65; PULSE 99; RESP 19; TEMP 36.44736; O2SAT 99
[2024-02-10 08:02] LABS: DIFFERENTIAL COMMENT 1
[2024-02-10] MEDS: ONDANSETRON HCL 4MG TABLET PO PRN (09:08)
[2024-02-10] MEDS: PANTOPRAZOLE 40MG DR TABLET PO SCH (10:49)
[2024-02-10] MEDS ORDERED: MAGNESIUM 2 G PREMIX 50 ML IV NR (12:00)
[2024-02-10] MEDS: WARFARIN SODIUM 4MG TABLET PO NR (18:25)
[2024-02-10 20:00] VITALS: BP_SYST 102; BP_SYST 161; BP_DIAS 53; BP_DIAS 85; PULSE 104; RESP 18; TEMP 36.78072; O2SAT 95
[2024-02-11 07:39] LABS: CHLORIDE 108 mEq/L (98-107); POTASSIUM 4.1 mEq/L (3.5-5.1); SODIUM 140 mEq/L (136-145)
[2024-02-11 07:42] LABS: CALCIUM 8.9 mg/dL (8.7-10.4); CARBON DIOXIDE 24 mEq/L (21-32)
[2024-02-11 07:47] LABS: CREATININE 0.8 mg/dL (0.6-1.0); GLUCOSE 115 mg/dL (70-105); UREA NITROGEN BLOOD 16 mg/dL (9-23)
[2024-02-11 07:48] LABS: ALANINE AMINOTRANSFERASE 62 IU/L (10-49)
[2024-02-11 07:49] LABS: ALBUMIN 3.5 g/dL (3.2-4.8); ASPARTATE AMINOTRANSFERASE 28 IU/L (<34); BILIRUBIN DIRECT 0.2 mg/dL (<=3.0); BILIRUBIN TOTAL 0.6 mg/dL (0.1-1.0)
[2024-02-11 07:50] LABS: PROTEIN TOTAL 5.7 g/dL (6.0-8.3)
[2024-02-11 07:52] LABS: INR 1.8; PROTHROMBIN TIME 18.8 sec (9.6-11.0)
[2024-02-11 08:00] VITALS: BP 148/75; PULSE 97; RESP 20; TEMP 37.05852; O2SAT 95
[2024-02-11 08:17] LABS: HEPATITIS B SURFACE ANTIGEN NEGATIVE (Negative)
[2024-02-11 08:37] LABS: HEPATITIS A AB IGM NEGATIVE (Negative)
[2024-02-11 08:38] LABS: HEPATITIS B CORE AB IGM NEGATIVE (Negative)
[2024-02-11 08:39] LABS: HEPATITIS C AB NON REACTIVE (Neg) (Negative)
[2024-02-11 08:52] LABS: BASOPHILS % 0.4 % (0.0-2.0); EOSINOPHILS % 2.6 % (0.0-5.0); HEMATOCRIT. 31.8 % (36.0-48.0); HEMOGLOBIN. 9.7 g/dL (12.0-16.0); LYMPHOCYTES % 25.9 % (20.0-50.0); MEAN CORPUSCULAR HGB CONC 30.4 g/dL (31.0-37.0); MEAN CORPUSCULAR VOLUME 85.5 fL (81.0-99.0); MEAN PLATELET VOLUME 11.4 fl (7.4-10.4); MONOCYTES % 14.7 % (2.0-8.0); NEUTROPHILS % 56.4 % (40.0-76.0); PLATELET 123 x1000/uL (130-400); RED BLOOD CELL COUNT 3.72 mill/uL (4.2-5.4); RED CELL DISTRIBUTION WIDTH 16.6 % (11.6-14.6); WHITE BLOOD COUNT 7.4 x1000/uL (4.5-11.0)
[2024-02-11] MEDS: ONDANSETRON HCL 4MG TABLET PO PRN (10:55)
[2024-02-11] MEDS: MAGNESIUM 2 G PREMIX 50 ML IV NR (15:15)
[2024-02-11 17:52] LABS: ANISOCYTOSIS 1+; PLATELET ESTIMATE SLIGHTLY DECREASED
[2024-02-11] MEDS: WARFARIN SODIUM 4MG TABLET PO SCH (18:06)
[2024-02-11 20:00] VITALS: BP 125/56; PULSE 89; RESP 18; TEMP 36.50292; O2SAT 96
[2024-02-12 05:39] LABS: IRON 52 ug/dL (50-170)
[2024-02-12 05:44] LABS: TOTAL IRON BINDING CAPACITY 283 ug/dl (250-425)
[2024-02-12 05:47] LABS: INR 1.8; PROTHROMBIN TIME 18.8 sec (9.6-11.0)
[2024-02-12 05:48] LABS: FERRITIN 194 ng/mL (10-291); FOLIC ACID (FOLATE) SERUM 12.23 ng/mL (>5.38)
[2024-02-12 05:57] LABS: VITAMIN B12 SERUM 681 pg/mL (211-911)
[2024-02-12] MEDS: WARFARIN SODIUM 5MG TABLET PO SCH (18:01)
[2024-02-12 20:00] VITALS: BP 133/76; PULSE 96; RESP 18; TEMP 35.94732; O2SAT 100
[2024-02-12 21:00] VITALS: BP 130/74; PULSE 98; RESP 20; TEMP 36.22512; O2SAT 98
[2024-02-13 06:02] LABS: BASOPHILS % 0.3 % (0.0-2.0); CHLORIDE 108 mEq/L (98-107); EOSINOPHILS % 2.9 % (0.0-5.0); HEMATOCRIT. 32.6 % (36.0-48.0); HEMOGLOBIN. 10.2 g/dL (12.0-16.0); LYMPHOCYTES % 26.5 % (20.0-50.0); MEAN CORPUSCULAR HEMOGLOBIN 26.6 pg (28.0-32.0); MEAN CORPUSCULAR HGB CONC 31.3 g/dL (31.0-37.0); MEAN PLATELET VOLUME 10.6 fl (7.4-10.4); MONOCYTES % 13.3 % (2.0-8.0); PLATELET 126 x1000/uL (130-400); POTASSIUM 4.3 mEq/L (3.5-5.1); RED BLOOD CELL COUNT 3.84 mill/uL (4.2-5.4); RED CELL DISTRIBUTION WIDTH 16.5 % (11.6-14.6); SODIUM 139 mEq/L (136-145); WHITE BLOOD COUNT 7.6 x1000/uL (4.5-11.0)
[2024-02-13 06:03] LABS: CALCIUM 8.9 mg/dL (8.7-10.4); CARBON DIOXIDE 25 mEq/L (21-32)
[2024-02-13 06:04] LABS: PROTHROMBIN TIME 21.3 sec (9.6-11.0)
[2024-02-13 06:07] LABS: AMMONIA < 17 uMol/L (<32)
[2024-02-13 06:08] LABS: CREATININE 0.9 mg/dL (0.6-1.0); GLUCOSE 87 mg/dL (70-105); UREA NITROGEN BLOOD 16 mg/dL (9-23)
[2024-02-13 06:10] LABS: ALANINE AMINOTRANSFERASE 39 IU/L (10-49); ALBUMIN 3.6 g/dL (3.2-4.8); ASPARTATE AMINOTRANSFERASE 24 IU/L (<34); BILIRUBIN DIRECT 0.2 mg/dL (<=3.0); BILIRUBIN TOTAL 0.7 mg/dL (0.1-1.0); PROTEIN TOTAL 5.9 g/dL (6.0-8.3)
[2024-02-13 08:00] VITALS: BP 122/59; PULSE 91; RESP 20; TEMP 36.9474; O2SAT 99
[2024-02-13 20:00] VITALS: BP 113/53; PULSE 98; RESP 18; TEMP 37.61412; O2SAT 97
[2024-02-14 06:15] LABS: INR 2.4; PROTHROMBIN TIME 25.6 sec (9.6-11.0)
[2024-02-14 06:21] LABS: ALANINE AMINOTRANSFERASE 34 IU/L (10-49); ASPARTATE AMINOTRANSFERASE 23 IU/L (<34)
[2024-02-14 06:22] LABS: ALBUMIN 3.6 g/dL (3.2-4.8); BILIRUBIN DIRECT 0.2 mg/dL (<=3.0); BILIRUBIN TOTAL 0.7 mg/dL (0.1-1.0); PROTEIN TOTAL 5.8 g/dL (6.0-8.3)
[2024-02-14 08:00] VITALS: BP 138/85; PULSE 108; RESP 19; TEMP 36.83628; O2SAT 98
[2024-02-14] MEDS ORDERED: HYDROCODONE/ACETAMINOPHEN 5/325MG TABLET PO PRN (09:00)
[2024-02-14] MEDS: WARFARIN SODIUM 3MG TABLET PO NR (17:47)
[2024-02-15 01:25] VITALS: PULSE 108; RESP 19; TEMP 38.11416; O2SAT 99
[2024-02-15] MEDS ORDERED: METHOTREXATE SODIUM 2 . 5MG TABLET PO SCH (12:45)
[2024-02-15] MEDS ORDERED: HYDROXYCHLOROQUINE SULFATE 200MG TABLET PO SCH (12:45)
[2024-02-15] MEDS: FOLIC ACID 1MG TABLET PO SCH (14:11)
[2024-02-15] MEDS: BUPROPION HCL 150MG TABLET XL 24HR PO SCH (14:11)
[2024-02-15] MEDS: PREDNISONE 20MG TABLET PO SCH (14:11)
[2024-02-15] MEDS ORDERED: WARFARIN SODIUM 5MG TABLET PO SCH (18:00)
[2024-02-15 20:00] VITALS: BP 108/69; PULSE 88; RESP 18; TEMP 36.33624; O2SAT 97
[2024-02-15] MEDS: METOPROLOL TARTRATE 50MG TABLET PO SCH (21:00)
[2024-02-15 21:20] LABS: ALANINE AMINOTRANSFERASE 31 IU/L (10-49); ALBUMIN 3.6 g/dL (3.2-4.8); ASPARTATE AMINOTRANSFERASE 29 IU/L (<34); BILIRUBIN DIRECT 0.2 mg/dL (<=3.0); BILIRUBIN TOTAL 0.8 mg/dL (0.1-1.0); CREATINE KINASE 159 IU/L (34-145); PROTEIN TOTAL 5.9 g/dL (6.0-8.3)
[2024-02-15 22:14] LABS: INR 2.8; PROTHROMBIN TIME 28.7 sec (9.6-11.0)
[2024-02-15] MEDS: WARFARIN SODIUM 3MG TABLET PO SCH (23:37)
[2024-02-16 08:00] VITALS: BP 115/60; PULSE 109; RESP 18; TEMP 36.28068; O2SAT 98
[2024-02-16] MEDS: METHOTREXATE SODIUM 2 . 5MG TABLET PO SCH ×2 (09:00→09:39)
[2024-02-16] MEDS: PREDNISONE 20MG TABLET PO SCH (09:34)
[2024-02-16] MEDS: POLYETHYLENE GLYCOL 3350 (17GM) 1 DOSE PACK PO SCH (11:45)
[2024-02-16] MEDS ORDERED: METO-539 PO (11:54)
[2024-02-16] MEDS ORDERED: P20 PO (11:54)
[2024-02-16] MEDS ORDERED: ASCO500T20 PO (11:54)
[2024-02-16] MEDS ORDERED: METH2.5T PO (11:54)
[2024-02-16] MEDS ORDERED: FOLI-43 PO (11:54)
[2024-02-16] MEDS ORDERED: BUPR-114 PO (11:54)
[2024-02-16] MEDS ORDERED: OXYB5TAB21 PO (11:54)
[2024-02-16] MEDS ORDERED: AMLO2.5T45 PO (11:54)
[2024-02-16] MEDS ORDERED: HYDR200T35 PO (11:54)
[2024-02-16 13:59] VITALS: BP 112/65; PULSE 98; TEMP 97.9; O2SAT 99
[2024-02-16] MEDS ORDERED: METHOTREXATE SODIUM 2 . 5MG TABLET PO SCH (17:00)
[2024-02-16] MEDS ORDERED: DOCUSATE SODIUM 100MG CAPSULE PO SCH (21:00)
[2024-02-20 19:11] LABS: ANTI-MYELOPEROXIDASE AB < 0.2 units (0.0-0.9); ANTI-PROTEINASE 3 ABS < 0.2 units (0.0-0.9)
[2024-02-21 09:11] LABS: ALDOLASE 10.2 U/L (3.3-10.3)
[2024-02-22 13:07] LABS: ATYPICAL P-ANCA <1:20 titer (Neg:<1:20); CYTOPLASMIC C-ANCA <1:20 titer (Neg:<1:20); PERINUCLEAR P-ANCA <1:20 titer (Neg:<1:20)
[2024-02-22 17:07] LABS: ANA IFA Negative (.)
== END 2024-02-16 15:45 | disposition home health service (06) | DRG 545 ==
PROVIDERS: ADMIT Physical Medicine & Rehabilitation Spinal Cord Injury Medicine; ATTEND Internal Medicine
DX: M06.8A Other specified rheumatoid arthritis, other specified site (principal); I63.9 Cerebral infarction, unspecified; N17.0 Acute kidney failure with tubular necrosis; D68.61 Antiphospholipid syndrome; M62.82 Rhabdomyolysis; E87.1 Hypo-osmolality and hyponatremia; R00.0 Tachycardia, unspecified; G89.4 Chronic pain syndrome; F31.9 Bipolar disorder, unspecified; Z68.39 Body mass index [BMI] 39.0-39.9, adult; D63.8 Anemia in other chronic diseases classified elsewhere; R53.81 Other malaise; R26.9 Unspecified abnormalities of gait and mobility; M62.81 Muscle weakness (generalized); G47.30 Sleep apnea, unspecified; E66.01 Morbid (severe) obesity due to excess calories; M79.7 Fibromyalgia; E87.5 Hyperkalemia; F20.9 Schizophrenia, unspecified; F41.9 Anxiety disorder, unspecified; M60.88 Other myositis, other site; G43.909 Migraine, unspecified, not intractable, without status migrainosus; E78.5 Hyperlipidemia, unspecified; E11.42 Type 2 diabetes mellitus with diabetic polyneuropathy; I12.9 Hypertensive chronic kidney disease with stage 1 through stage 4 chronic kidney disease, or unspecified chronic kidney disease; K21.9 Gastro-esophageal reflux disease without esophagitis; K58.0 Irritable bowel syndrome with diarrhea; E11.22 Type 2 diabetes mellitus with diabetic chronic kidney disease; K29.70 Gastritis, unspecified, without bleeding; N18.9 Chronic kidney disease, unspecified; K76.0 Fatty (change of) liver, not elsewhere classified; Z96.643 Presence of artificial hip joint, bilateral; Z96.653 Presence of artificial knee joint, bilateral; Z90.710 Acquired absence of both cervix and uterus; Z86.73 Personal history of transient ischemic attack (TIA), and cerebral infarction without residual deficits; Z90.49 Acquired absence of other specified parts of digestive tract; Z88.0 Allergy status to penicillin; Z86.711 Personal history of pulmonary embolism; Z86.718 Personal history of other venous thrombosis and embolism; Z88.5 Allergy status to narcotic agent
CPT/HCPCS: 36415; 76700; 80048; 80053; 80076; 81003; 82085; 82140; 82248; 82550; 82607; 82728; 82746; 82962; 83520; 83540; 83550; 83735; 84100; 84134; 85025; 85027; 85044; 86256; 86705; 86709; 87340; 92523; 97110; 97116; 97162; 97166; 97530; 97535; C1893; J1650; J1815; J2185; J2920; J3475; J7120; J7512; J8610; Q0162